=== PATIENT | female | born 1970 | race Caucasian/White ===

== ENCOUNTER → 2019-09-26 12:46 | Outpatient (CLI) | payer OTHER, SELFPAY ==
--- NOTE | ~2019-09-26 | XR_ITS ---
EXAMINATION: XR chest 2V DATE: 09/26/2019 13:04 INDICATION: Cough and shortness of breath TECHNIQUE: PA and lateral views of the chest are obtained. COMPARISON: 07/06/2015 FINDINGS: The lungs are free of acute opacities. There is no pleural effusion or pneumothorax. The ca rdiomediastinal silhouette is normal. There is mild thoracic spondylosis. IMPRESSION: 1. No acute cardiopulmonary abnormality. Reviewed, dictated and finalized at location B.
== END ==
PROVIDERS: PCP Physician Assistant; Visit Provider Physician Assistant
DX: Z13.9 Encounter for screening, unspecified (principal)
CPT/HCPCS: 71046

== ENCOUNTER → 2020-10-09 04:18 | Outpatient (CLI) | payer OTHER, SELFPAY ==
[2020-10-10 01:36] LABS: SARS-CoV-2 RNA PCR Negative
== END ==
PROVIDERS: PCP Physician Assistant; Visit Provider Physician Assistant
DX: R68.89 Other general symptoms and signs (principal); Z20.822 Contact with and (suspected) exposure to COVID-19
CPT/HCPCS: C9803; U0003; U0005

== ENCOUNTER → 2021-03-03 14:22 | Outpatient (CLI) | payer OTHER, SELFPAY ==
--- NOTE | ~2021-03-03 | CT_ITS ---
EXAMINATION: CT abdomen pelvis w con EXAM DATE: 03/03/2021 14:56 INDICATION: Right lower quadrant pain and fullness. TECHNIQUE: Spiral CT of the abdomen and pelvis was performed following intravenous injection of 100 m L Omnipaque 350. Axial, coronal and sagittal images of the abdomen and pelvis were reviewed. The do se-length product (DLP) for this examination was 1091.97 mGy-cm. The exposure was tailored according to patient size (auto mA exposure control), and iterative reconstruction (ASIR) was used as addition al dose reduction technique. There is no prior study for comparison. FINDINGS: There is large lobular intra-abdominal fat containing hernia with the mouth of the hernia i n the midline measuring about 5 cm, and lobulation bulging into the right lower quadrant subcutaneous fat, herniated fat measuring about 15 cm diameter by 4 cm in thickness. The liver, spleen, adrenal glands and pancreas are unremarkable. There are cholecystectomy clips. Portal and splenic veins are patent. Kidneys enhance symmetrically. There is no hydronephrosis. The uterus and ovaries are un remarkable, no adnexal mass. The bladder is unremarkable. There is no retroperitoneal or pelvic lym phadenopathy. The appendix is normal. There is mild scattered colonic diverticulosis. There is no adjacent inflamm atory change to suggest diverticulitis. The stomach and small bowel are unremarkable. There is expec kimber amount of colonic stool. No free intraperitoneal gas. The heart is normal in size. There are no pericardial or pleural effusions. The lung bases are unremarkable. There are no osteoblastic or osteolytic lesions identified. IMPRESSION: 1. Large fat-containing infraumbilical hernia bulging into right lower quadrant subcutaneous fat. 2. Mild scattered colonic diverticulosis. Reviewed, dictated and finalized at location A. NICAL ASST IMPRESSION: 1. Large fat-containing infraumbilical hernia bulging into right lower quadran t subcutaneous fat. 2. Mild scattered colonic diverticulosis.
[2021-03-03 14:45] LABS: Estimated Glomerular Filt Rate > 60
== END ==
PROVIDERS: Visit Provider Physician Assistant
DX: K57.30 Diverticulosis of large intestine without perforation or abscess without bleeding (principal); K42.9 Umbilical hernia without obstruction or gangrene
CPT/HCPCS: 74177; Q9967

== ENCOUNTER 2021-03-25 14:23 | Outpatient (CLI) | payer OTHER, SELFPAY ==
--- NOTE | ~2021-03-25 | XR_ITS ---
EXAMINATION: XR chest 2V DATE: 03/25/2021 14:52 INDICATION: Left chest pain. Cough. Respiratory tract congestion. TECHNIQUE: Frontal and lateral views of the chest were obtained. COMPARISON: Chest 2 views 09/26/2019, CT abdomen and pelvis 03/03/2021 FINDINGS: The chest demonstrates clear lungs without pneumonia, pleural effusion, or pneumothorax. Th e heart size is normal. Surgical clips in the right upper quadrant are likely from cholecystectomy. IMPRESSION: 1. No acute cardiopulmonary disease. Reviewed, dictated and finalized at location E. 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
[2021-03-25 15:31] LABS: Basophils Absolute Auto 0.1 K/mm3 (0.0-0.1); Basophils Percent Auto 0.7 % (0.2-1.2); Eosinophils Absolute Auto 0.2 K/mm3 (0-0.3); Hematocrit 41.7 % (37.0-47.0); Hemoglobin 14.4 g/dL (12.0-15.0); Immature Granulocyte Absolute 0.03 K/mm3 (0.00-0.031); Immature Granulocyte Percent A 0.3 % (0-0.5); Lymphocytes Absolute Auto 1.36 K/mm3 (0.9-3.2); Lymphocytes Percent Auto 14.5 % (18.3-44.2); Mean Corpuscular HGB Conc 34.5 g/dl (32-36); Mean Corpuscular Hemoglobin 30.3 pg (26-34); Mean Corpuscular Volume 87.8 fl (80-100); Mean Platelet Volume 11.8 fl (7.4-10.4); Monocytes Absolute Auto 0.6 K/mm3 (0.1-0.6); Monocytes Percent Auto 6.1 % (2.6-8.5); Neutrophils Absolute Auto 7.2 K/mm3 (1.3-6.7); Neutrophils Percent Auto 76.4 % (45.5-73.1); Platelet Count Result 129 k/mm3 (150-375); Red Blood Count 4.75 M/mm3 (4.2-5.4); Red Cell Distribution Width 12.9 % (11.5-14.5); White Blood Count 9.4 K/mm3 (4.5-10.0)
[2021-03-25 15:41] LABS: D Dimer 0.61 ug/mL (<0.48)
[2021-03-25 15:43] LABS: Alanine Aminotransferase 20 U/L (4-35); Albumin Level 4.2 g/dL (3.5-5.1); Alkaline Phosphatase 57 U/L (38-126); Anion Gap 6 mmol/L (8-16); Aspartate Amino Transferase 26 U/L (14-36); Bilirubin,Total 0.4 mg/dL (0.2-1.3); Blood Urea Nitrogen 12 mg/dL (7-17); Calcium 8.8 mg/dL (8.4-10.2); Carbon Dioxide 28 mmol/L (22-30); Chloride 105 mmol/L (98-107); Estimated Glomerular Filt Rate > 60; Glucose 130 mg/dL (65-110); Potassium 3.3 mmol/L (3.4-5.0); Sodium 139 mmol/L (137-145)
== END 2021-03-25 14:24 | disposition home or self-care (01) ==
PROVIDERS: PCP Physician Assistant; Visit Provider Physician Assistant
DX: R05.9 Cough, unspecified (principal)
CPT/HCPCS: 36415; 71046; 80053; 85025; 85380

== ENCOUNTER 2021-03-30 15:19 | Outpatient (CLI) | payer OTHER, SELFPAY ==
--- NOTE | ~2021-03-30 | CT_ITS ---
EXAMINATION: CTA chest PE protocol DATE: 03/30/2021 16:00 INDICATION: Positive d-dimer. Abnormal coagulation profile. TECHNIQUE: Computed tomography angiography (CTA) of the chest was performed with 100 mL Omnipaque-350 intravenous contrast timed to evaluate the pulmonary arteries. Coronal maximum intensity projection 3D-reconstructions were created by the technologist. Automated exposure control and iterative reconst ruction technique were employed. Exam dose: 686.46 mGy-cm total exam DLP. COMPARISON: March 25, 2021 2 view chest FINDINGS: There is no evidence of pulmonary embolism. No thoracic aortic aneurysm or dissection. No hilar or mediastinal mass lesion or lymphadenopathy. The lungs are clear of infiltrate or consolidation. No pulmonary mass density is noted. Normal morphology of the adrenal glands. Status post cholecystectomy. No suspicious osteolytic or osteoblastic lesions. IMPRESSION: No evidence of pulmonary embolism Status post cholecystectomy Reviewed, dictated and finalized at Location A. Reviewed, dictated and finalized at location A. 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
[2021-03-30 15:47] LABS: Estimated Glomerular Filt Rate > 60
== END 2021-03-30 15:20 | disposition home or self-care (01) ==
LOC: ANHIMG 15:21
PROVIDERS: PCP Physician Assistant; Visit Provider Physician Assistant
DX: R79.1 Abnormal coagulation profile (principal); Z90.49 Acquired absence of other specified parts of digestive tract
CPT/HCPCS: 71275; Q9967

== ENCOUNTER → 2022-09-06 08:13 | Outpatient (CLI) | payer BC, SELFPAY ==
--- NOTE | ~2022-09-06 | US_ITS ---
Thyroid ultrasound. Clinical History: Multinodular goiter COMPARISON: 12/06/2018 Findings: Real-time sonography of the thyroid gland was performed. The right lobe measures 4.7 x 2.2 x 1.8 cm. The left lobe measures 4.5 x 1.4 x 2.0 cm. The isthmus is 3 mm in AP diameter. Thyroid parenchyma is very heterogeneous. Possible 6 mm hypoechoic nodule at the left midpole. Impression: Heterogeneous thyroid parenchyma. Questionable subcentimeter nodule, as detailed above, which require s no further follow-up.. Reviewed, dictated and finalized at location M. Impression: Heterogeneous thyroid parenchyma. Questionable subcentimeter nodule, as detaile d above, which requires no further follow-up..
== END ==
PROVIDERS: PCP Physician Assistant
DX: E04.2 Nontoxic multinodular goiter (principal)
CPT/HCPCS: 76536

== ENCOUNTER → 2022-10-27 12:59 | Outpatient (CLI) | payer BC, SELFPAY ==
--- NOTE | ~2022-10-27 | XR_ITS ---
Clinical Indication: Cough PA and lateral views of the chest: Comparison: 03/25/2021 Findings: The lungs are clear, without evidence of focal consolidation or pleural effusion. Cardiome diastinal silhouette is within normal limits. Bones and soft tissues are unremarkable. Impression: Normal chest. Reviewed, dictated and finalized at location . Impression: Normal chest.
== END ==
PROVIDERS: PCP Physician Assistant; Visit Provider Physician Assistant
DX: R05.9 Cough, unspecified (principal)
CPT/HCPCS: 71046